=== PATIENT | male | born 1965 | race Caucasian/White ===

== ENCOUNTER 2019-07-05 11:46 | Emergency (ER) | payer SELFPAY ==
[~2019-07-05] VITALS: Ht 180.3 cm; Wt 97.6 kg
[2019-07-05] MEDS ORDERED: OXYcodone/APAP 5/325MG TABLET PO ONE (13:00)
[2019-07-05] MEDS ORDERED: OXYcodone/APAP 5/325MG TABLET ONE (13:30)
[2019-07-05 14:24] VITALS: BP 139/97
--- NOTE | 2019-07-05 14:25 | NUR ---
pt given dc instructions and script, educated regarding rx for naproxen. pt left with own crutches, demonstrates appropriate use. pt educated not to drive d/t med given, nadn at dc.
== END 2019-07-05 14:26 | disposition home or self-care (01) ==
LOC: ED 14:15
DX: G89.11 Acute pain due to trauma (principal); M25.562 Pain in left knee; X50.9XXA Other and unspecified overexertion or strenuous movements or postures, initial encounter; Y93.89 Activity, other specified; Y92.89 Other specified places as the place of occurrence of the external cause; Y99.8 Other external cause status
CPT/HCPCS: 99283